=== PATIENT | female | born 1970 | race Asian ===

== ENCOUNTER 2021-04-07 09:10 | Outpatient (REF) | payer OTHER, SELFPAY ==
[2021-04-07 09:34] LABS: Binax Now Covid-19 Ag Negative (Negative)
[2021-04-07 09:35] LABS: Binax Internal Control QC Valid
== END 2021-04-07 09:11 | disposition home or self-care (01) ==
LOC: HO.LAB 09:10
PROVIDERS: Visit Provider Internal Medicine
DX: Z20.822 Contact with and (suspected) exposure to COVID-19 (principal)
CPT/HCPCS: C9803